=== PATIENT | male | born 1960 | race Caucasian/White ===

== ENCOUNTER 2018-02-10 18:35 | Inpatient (IN) | payer BC, OTHER ==
[2018-02-10] MEDS: morphine 4 MG/ML VIAL IV (19:45)
[2018-02-10] MEDS: SOD CHLORIDE 0.9% 1,000 ML IV (20:00)
[2018-02-10 20:07] LABS: ADD MAN DIFF? NO
[2018-02-10 20:08] LABS: ABNORMAL IP MESSAGE 1; BASOPHILS % 0.4 % (0.0-2.0); EOSINOPHILS % 0.2 % (0.0-7.0); HEMATOCRIT 45.9 % (42.0-52.0); HEMOGLOBIN 15.5 g/dl (14.0-18.0); LYMPHOCYTES # 0.5 10^3/ul (0.8-2.9); LYMPHOCYTES % 4.5 % (15.0-51.0); MEAN CORPUSCULAR HEMOGLOBIN 28.8 pg (29.0-33.0); MEAN CORPUSCULAR HGB CONC 33.8 g/dl (32.0-37.0); MEAN CORPUSCULAR VOLUME 85.3 fl (82.0-101.0); MEAN PLATELET VOLUME 12.6 fl (7.4-10.4); MONOCYTES % 9.8 % (0.0-11.0); NEUTROPHIL # 8.8 10^3/ul (1.6-7.5); NEUTROPHILS % 83.6 % (39.0-77.0); PLATELET COUNT 257 10^3/UL (140-415); POSITIVE DIFF @See below; RED BLOOD COUNT 5.38 10^6/ul (4.70-6.10); RED CELL DISTRIBUTION WIDTH 13.2 % (11.5-14.5)
[2018-02-10 20:08] LABS: WHITE BLOOD COUNT 10.6 10^3/ul (4.8-10.8)
[2018-02-10 20:27] LABS: ALANINE AMINOTRANSFERASE 18 IU/L (13-69); ALBUMIN 3.3 g/dl (3.3-4.9); ALKALINE PHOSPHATASE 84 IU/L (42-121); ANION GAP 14 (8-16); ASPARTATE AMINO TRANSFERASE 24 IU/L (15-46); BILIRUBIN,INDIRECT 0.5 mg/dl (0-1.1); BILIRUBIN,TOTAL 0.5 mg/dl (0.2-1.3); BLOOD UREA NITROGEN 22 mg/dl (7-20); CALCIUM 9.8 mg/dl (8.4-10.2); CARBON DIOXIDE 21 mmol/L (21-31); CHLORIDE 97 mmol/L (97-110); CREATININE 1.23 mg/dl (0.61-1.24); LIPASE 107 U/L (23-300); POTASSIUM 3.3 mmol/L (3.5-5.1); SODIUM 129 mmol/L (135-144); TOTAL PROTEIN 6.3 g/dl (6.1-8.1)
[2018-02-10] MEDS: ONDANSETRON 4 MG INJ IV (20:46)
[2018-02-10 20:55] LABS: GLUCOSE 479 mg/dl (70-220)
[2018-02-10 20:58] LABS: LACTIC ACID 2.8 mmol/L (0.5-2.0)
[2018-02-10] MEDS: LORAZEPAM 2 MG INJ IV (20:59)
[2018-02-10] MEDS: CEFEPIME 2GM/50 ML (PMX) 50 ML IVPB (21:00)
[2018-02-10] MEDS: SODIUM CHLORIDE 0.9% 1L BAG IV* (21:12)
[2018-02-10] MEDS: NYSTATIN 30 GM POWDER BTL TOP (21:26)
[2018-02-10] MEDS: VANCOMYCIN 1 GM (PMX) 250 ML IVPB (21:36)
[2018-02-10] MEDS: metroNIDAZOLE 500 MG/NS (PMX) 100 ML IVPB (22:10)
[2018-02-10 22:48] LABS: ADD UMIC YES; UR ASCORBIC ACID NEGATIVE (NEGATIVE); UR BACTERIA FEW /HPF (NONE SEEN); UR BILIRUBIN (Dip) NEGATIVE (NEGATIVE); UR BLOOD (Dip) 1+ mg/dL (NEGATIVE); UR CLARITY SLIGHTLY CLOUDY (CLEAR); UR COLOR YELLOW (YELLOW); UR GLUCOSE (Dip) 3+ mg/dL (NEGATIVE); UR KETONES (Dip) TRACE mg/dL (NEGATIVE); UR LEUKOCYTE ESTERASE (Dip) TRACE Leu/ul (NEGATIVE); UR NITRITE (Dip) NEGATIVE (NEGATIVE); UR RBC 2 /HPF (0-5); UR SPECIFIC GRAVITY (Dip) 1.015 (1.003-1.030); UR TOTAL PROTEIN (Dip) 1+ mg/dl (NEGATIVE); UR UROBILINOGEN (Dip) NEGATIVE (NEGATIVE); UR WBC 8 /HPF (0-5)
[2018-02-10 23:09] LABS: LACTIC ACID < 0.5 mmol/L (0.5-2.0)
[2018-02-11] MEDS ORDERED: DEXTROSE 50% 50 ML SYRINGE IV ×2 (00:30)
[2018-02-11] MEDS ORDERED: GLUCOSE GEL 15 GRAM TUBE PO ×2 (00:30)
[2018-02-11] MEDS ORDERED: GLUCOSE GEL 15 GRAM TUBE BUCCAL (00:30)
[2018-02-11] MEDS ORDERED: ACETAMINOPHEN 325 MG TAB PO (00:30)
[2018-02-11] MEDS ORDERED: GLUCAGON 1 MG INJ IM (00:30)
[2018-02-11 00:55] LABS: LACTIC ACID 1.3 mmol/L (0.5-2.0)
[2018-02-11] MEDS: POTASSIUM CHLORIDE 40 MEQ in SOD CHLORIDE 0.9% 1,000 ML IV ×4 (01:00→22:20)
[2018-02-11] MEDS: ONDANSETRON 4 MG INJ IV (01:07)
[2018-02-11] MEDS: MAGNESIUM SULFATE 1 GM/D5W 100 ML IVPB (01:07)
[2018-02-11] MEDS: METOCLOPRAMIDE 10 MG INJ IV (01:07)
[2018-02-11] MEDS: ACCU-CHEK XX (02:00)
[2018-02-11 04:01] LABS: GLUCOSE 385 mg/dl (70-220)
[2018-02-11] MEDS: glipiZIDE 10 MG TAB PO (04:31)
[2018-02-11] MEDS: INSULIN ASPART [NOVOLOG] 3 ML PEN SC ×5 (04:32→21:29)
[2018-02-11 06:54] LABS: ADD MAN DIFF? NO
[2018-02-11] MEDS ORDERED: glipiZIDE 10 MG TAB PO (07:00)
[2018-02-11 07:02] LABS: ABNORMAL IP MESSAGE 1; BASOPHILS % 0.4 % (0.0-2.0); HEMATOCRIT 40.9 % (42.0-52.0); HEMOGLOBIN 13.6 g/dl (14.0-18.0); LYMPHOCYTES # 0.5 10^3/ul (0.8-2.9); LYMPHOCYTES % 4.7 % (15.0-51.0); MEAN CORPUSCULAR HEMOGLOBIN 28.9 pg (29.0-33.0); MEAN CORPUSCULAR HGB CONC 33.3 g/dl (32.0-37.0); MONOCYTE # 1.2 10^3/ul (0.3-0.9); MONOCYTES % 10.4 % (0.0-11.0); NEUTROPHIL # 9.6 10^3/ul (1.6-7.5); NEUTROPHILS % 83.8 % (39.0-77.0); POSITIVE DIFF @See below; RED CELL DISTRIBUTION WIDTH 13.3 % (11.5-14.5)
[2018-02-11 07:02] LABS: WHITE BLOOD COUNT 11.4 10^3/ul (4.8-10.8)
[2018-02-11 07:05] LABS: PLATELET COUNT 191 10^3/UL (140-415)
[2018-02-11 07:14] LABS: HDL CHOLESTEROL 16 mg/dl (30-78); LDL CHOLESTEROL,CALCULATED 28 mg/dl; TRIGLYCERIDES 107 mg/dl (0-149)
[2018-02-11 07:14] LABS: CHOLESTEROL 65 mg/dl (100-200)
[2018-02-11 07:20] LABS: ALANINE AMINOTRANSFERASE 20 IU/L (13-69); ALBUMIN 2.7 g/dl (3.3-4.9); ALBUMIN/GLOBULIN RATIO 0.96; ALKALINE PHOSPHATASE 72 IU/L (42-121); ANION GAP 11 (8-16); ASPARTATE AMINO TRANSFERASE 20 IU/L (15-46); BILIRUBIN,INDIRECT 0.3 mg/dl (0-1.1); BILIRUBIN,TOTAL 0.3 mg/dl (0.2-1.3); BLOOD UREA NITROGEN 20 mg/dl (7-20); CALCIUM 8.7 mg/dl (8.4-10.2); CARBON DIOXIDE 22 mmol/L (21-31); CHLORIDE 108 mmol/L (97-110); CREATININE 0.89 mg/dl (0.61-1.24); GLUCOSE 275 mg/dl (70-220); MAGNESIUM 1.9 mg/dl (1.7-2.5); POTASSIUM 3.1 mmol/L (3.5-5.1); SODIUM 138 mmol/L (135-144); TOTAL PROTEIN 5.5 g/dl (6.1-8.1)
[2018-02-11] MEDS: metFORMIN 500 MG TAB PO ×2 (07:55→17:36)
[2018-02-11 08:01] LABS: HEMOGLOBIN A1C 13.8 % (0-5.9)
[2018-02-11] MEDS: POTASSIUM CHLORIDE (SR) 20 MEQ TAB PO (09:31)
[2018-02-11] MEDS: CIPROFLOXACIN 400MG/D5W 200 ML IVPB (09:31)
[2018-02-11] MEDS ORDERED: PIPER-TAZO 3.375 GM IV (PMX) 100 ML IVPB (19:00)
[2018-02-11] MEDS: DOXYCYCLINE 100 MG in SOD CHLORIDE 0.9% 250 ML IVPB (21:00)
[2018-02-11] MEDS: CEFEPIME 2GM/50 ML IVPB (21:21)
[2018-02-11] MEDS: INSULIN GLARGINE [LANTus] (100 UNITS/ML) SYG SC (21:28)
[2018-02-12] MEDS: ACCU-CHEK XX (02:30)
[2018-02-12] MEDS: POTASSIUM CHLORIDE 40 MEQ in SOD CHLORIDE 0.9% 1,000 ML IV ×2 (06:16→23:59)
[2018-02-12] MEDS: INSULIN ASPART [NOVOLOG] 3 ML PEN SC ×5 (07:47→20:43)
[2018-02-12] MEDS: metFORMIN 500 MG TAB PO ×2 (08:49→17:43)
[2018-02-12] MEDS: CEFEPIME 2GM/50 ML IVPB ×2 (08:50→20:36)
[2018-02-12] MEDS: DOXYCYCLINE 100 MG in SOD CHLORIDE 0.9% 250 ML IVPB ×2 (08:54→21:44)
[2018-02-12 09:10] LABS: ADD MAN DIFF? NO
[2018-02-12 09:14] LABS: BASOPHILS % 0.3 % (0.0-2.0); EOSINOPHILS # 0.1 10^3/ul (0.0-0.5); EOSINOPHILS % 0.4 % (0.0-7.0); HEMATOCRIT 42.5 % (42.0-52.0); LYMPHOCYTES # 1.3 10^3/ul (0.8-2.9); LYMPHOCYTES % 11.8 % (15.0-51.0); MEAN CORPUSCULAR HEMOGLOBIN 28.4 pg (29.0-33.0); MEAN CORPUSCULAR HGB CONC 32.9 g/dl (32.0-37.0); MEAN CORPUSCULAR VOLUME 86.2 fl (82.0-101.0); MEAN PLATELET VOLUME 12.1 fl (7.4-10.4); MONOCYTE # 1.1 10^3/ul (0.3-0.9); MONOCYTES % 9.8 % (0.0-11.0); NEUTROPHIL # 8.7 10^3/ul (1.6-7.5); NEUTROPHILS % 76.9 % (39.0-77.0); PLATELET COUNT 242 10^3/UL (140-415); RED BLOOD COUNT 4.93 10^6/ul (4.70-6.10); RED CELL DISTRIBUTION WIDTH 13.8 % (11.5-14.5)
[2018-02-12 09:14] LABS: WHITE BLOOD COUNT 11.3 10^3/ul (4.8-10.8)
[2018-02-12 09:38] LABS: ANION GAP 8 (8-16); BLOOD UREA NITROGEN 12 mg/dl (7-20); CALCIUM 8.3 mg/dl (8.4-10.2); CARBON DIOXIDE 22 mmol/L (21-31); CHLORIDE 109 mmol/L (97-110); GLUCOSE 179 mg/dl (70-220); POTASSIUM 3.8 mmol/L (3.5-5.1); SODIUM 135 mmol/L (135-144)
[2018-02-12] MEDS: INSULIN GLARGINE [LANTus] (100 UNITS/ML) SYG SC (20:42)
[2018-02-12] MEDS: ONDANSETRON 4 MG INJ IV (21:44)
[2018-02-13] MEDS: ACCU-CHEK XX (02:01)
[2018-02-13 06:30] LABS: ADD MAN DIFF? NO
[2018-02-13 06:32] LABS: WHITE BLOOD COUNT 9.6 10^3/ul (4.8-10.8)
[2018-02-13 06:32] LABS: BASOPHIL # 0.1 10^3/ul (0.0-0.1); BASOPHILS % 0.6 % (0.0-2.0); EOSINOPHILS # 0.1 10^3/ul (0.0-0.5); EOSINOPHILS % 0.5 % (0.0-7.0); HEMATOCRIT 41.3 % (42.0-52.0); HEMOGLOBIN 13.6 g/dl (14.0-18.0); LYMPHOCYTES # 1.4 10^3/ul (0.8-2.9); LYMPHOCYTES % 14.8 % (15.0-51.0); MEAN CORPUSCULAR HEMOGLOBIN 28.2 pg (29.0-33.0); MEAN CORPUSCULAR HGB CONC 32.9 g/dl (32.0-37.0); MEAN CORPUSCULAR VOLUME 85.7 fl (82.0-101.0); MEAN PLATELET VOLUME 11.8 fl (7.4-10.4); MONOCYTES % 10.6 % (0.0-11.0); NEUTROPHILS % 72.9 % (39.0-77.0); PLATELET COUNT 260 10^3/UL (140-415); RED BLOOD COUNT 4.82 10^6/ul (4.70-6.10); RED CELL DISTRIBUTION WIDTH 13.7 % (11.5-14.5)
[2018-02-13 06:50] LABS: INR 1.04; PROTIME 13.7 Sec (11.9-14.9); PT RATIO 1.1
[2018-02-13 06:51] LABS: PARTIAL THROMBOPLASTIN TIME 35.2 Sec (25.0-35.0)
[2018-02-13 07:07] LABS: ANION GAP 10 (8-16); BLOOD UREA NITROGEN 8 mg/dl (7-20); CALCIUM 8.2 mg/dl (8.4-10.2); CARBON DIOXIDE 22 mmol/L (21-31); CHLORIDE 110 mmol/L (97-110); CREATININE 0.57 mg/dl (0.61-1.24); GLUCOSE 132 mg/dl (70-220); POTASSIUM 3.4 mmol/L (3.5-5.1); SODIUM 139 mmol/L (135-144)
[2018-02-13] MEDS: INSULIN ASPART [NOVOLOG] 3 ML PEN SC ×7 (07:47→21:00)
[2018-02-13] MEDS: metFORMIN 500 MG TAB PO ×2 (07:47→17:55)
[2018-02-13] MEDS: CEFEPIME 2GM/50 ML IVPB (08:44)
[2018-02-13] MEDS: DOXYCYCLINE 100 MG in SOD CHLORIDE 0.9% 250 ML IVPB ×2 (08:44→22:36)
[2018-02-13] MEDS: POTASSIUM CHLORIDE 50 ML IVPB ×3 (10:45→12:31)
[2018-02-13] MEDS ORDERED: AMPICILLIN/SULB 3 GM/NS (PMX) 100 ML IVPB (12:00)
[2018-02-13] MEDS: CEFAZOLIN 2 GM/50 ML (PMX) 50 ML IVPB (14:19)
[2018-02-13] MEDS: POTASSIUM CHLORIDE 40 MEQ in SOD CHLORIDE 0.9% 1,000 ML IV (14:21)
[2018-02-13] MEDS ORDERED: FENTAnyl 50 MCG/ML VIAL (19:58)
[2018-02-13] MEDS ORDERED: LIDOCAINE 2% (SDV) 5 ML INJ (19:58)
[2018-02-13] MEDS ORDERED: MIDAZOLAM 1 MG/ML 2 ML INJ (19:58)
[2018-02-13] MEDS ORDERED: CEFAZOLIN 1 GM INJ (19:58)
[2018-02-13] MEDS ORDERED: PROPOFOL 40 ML (20:11)
[2018-02-13] MEDS ORDERED: ACETAMINOPHEN 1000MG/100ML IV 100 ML (20:26)
[2018-02-13] MEDS ORDERED: METOCLOPRAMIDE 10 MG INJ (20:26)
[2018-02-13] MEDS ORDERED: ONDANSETRON 4 MG INJ (20:26)
[2018-02-13] MEDS ORDERED: FAMOTIDINE 20 MG INJ (20:26)
[2018-02-13] MEDS ORDERED: HYDROmorphONE 2 MG/ML SYG (20:30)
[2018-02-13] MEDS: POLYMYXIN/BACITRACIN 1L IRRIG (20:57)
[2018-02-13] MEDS ORDERED: KETOROLAC 30 MG INJ (21:06)
[2018-02-13] MEDS ORDERED: FENTAnyl 50 MCG/ML VIAL IV ×3 (21:30)
[2018-02-13] MEDS ORDERED: PROCHLORPERAZINE 10 MG INJ IV (21:30)
[2018-02-13] MEDS ORDERED: hydrALAzine 20 MG INJ IV (21:30)
[2018-02-13] MEDS ORDERED: DIPHENHYDRAMINE 50 MG INJ IV (21:30)
[2018-02-13] MEDS ORDERED: LABETALOL HCL 20MG INJ IV (21:30)
[2018-02-13] MEDS ORDERED: MEPERIDINE 25 MG INJ IV (21:30)
[2018-02-13] MEDS ORDERED: HYDROmorphONE 1 MG/5 ML IV SYRINGE IV ×3 (21:30)
[2018-02-13] MEDS ORDERED: ONDANSETRON 4 MG INJ IV (21:30)
[2018-02-13] MEDS: INSULIN GLARGINE [LANTus] (100 UNITS/ML) SYG SC (22:35)
[2018-02-14] MEDS: CEFAZOLIN 2 GM/50 ML (PMX) 50 ML IVPB ×2 (00:12→06:26)
[2018-02-14] MEDS: ACCU-CHEK XX (02:37)
[2018-02-14] MEDS: POTASSIUM CHLORIDE 40 MEQ in SOD CHLORIDE 0.9% 1,000 ML IV ×3 (06:26→19:40)
[2018-02-14] MEDS: INSULIN ASPART [NOVOLOG] 3 ML PEN SC ×7 (07:55→21:00)
[2018-02-14] MEDS: DOXYCYCLINE 100 MG in SOD CHLORIDE 0.9% 250 ML IVPB (08:10)
[2018-02-14] MEDS: metFORMIN 500 MG TAB PO ×2 (08:11→17:03)
[2018-02-14 09:19] LABS: ADD MAN DIFF? NO
[2018-02-14 09:26] LABS: BASOPHIL # 0.1 10^3/ul (0.0-0.1); BASOPHILS % 0.6 % (0.0-2.0); EOSINOPHILS # 0.1 10^3/ul (0.0-0.5); EOSINOPHILS % 1.4 % (0.0-7.0); HEMATOCRIT 40.3 % (42.0-52.0); HEMOGLOBIN 13.1 g/dl (14.0-18.0); IMMATURE GRANS #M 0.08 10^3/ul; IMMATURE GRANS % (M) 0.9 %; LYMPHOCYTES # 1.5 10^3/ul (0.8-2.9); LYMPHOCYTES % 17.4 % (15.0-51.0); MEAN CORPUSCULAR HEMOGLOBIN 28.2 pg (29.0-33.0); MEAN CORPUSCULAR HGB CONC 32.5 g/dl (32.0-37.0); MEAN CORPUSCULAR VOLUME 86.7 fl (82.0-101.0); MEAN PLATELET VOLUME 12.1 fl (7.4-10.4); MONOCYTE # 0.8 10^3/ul (0.3-0.9); MONOCYTES % 8.7 % (0.0-11.0); NEUTROPHIL # 6.2 10^3/ul (1.6-7.5); PLATELET COUNT 240 10^3/UL (140-415); RED BLOOD COUNT 4.65 10^6/ul (4.70-6.10); RED CELL DISTRIBUTION WIDTH 13.8 % (11.5-14.5)
[2018-02-14 09:26] LABS: WHITE BLOOD COUNT 8.7 10^3/ul (4.8-10.8)
[2018-02-14 09:58] LABS: ANION GAP 10 (8-16); BLOOD UREA NITROGEN 9 mg/dl (7-20); CALCIUM 7.9 mg/dl (8.4-10.2); CARBON DIOXIDE 25 mmol/L (21-31); CHLORIDE 106 mmol/L (97-110); CREATININE 0.66 mg/dl (0.61-1.24); GLUCOSE 94 mg/dl (70-220); POTASSIUM 3.2 mmol/L (3.5-5.1); SODIUM 138 mmol/L (135-144)
[2018-02-14] MEDS ORDERED: VANCOMYCIN IV PER PHARMACY XX (10:00)
[2018-02-14] MEDS: MEROPENEM 1 GM/50ML(PMX) 50 ML IVPB ×3 (10:00→21:52)
[2018-02-14] MEDS ORDERED: metroNIDAZOLE 500 MG/NS (PMX) 100 ML IVPB (10:00)
[2018-02-14] MEDS: POTASSIUM CHLORIDE (SR) 20 MEQ TAB PO (11:08)
[2018-02-14] MEDS: CLINDAMYCIN 900 MG/D5W (PMX) 50 ML IVPB ×2 (11:48→21:02)
[2018-02-14] MEDS: VANCOMYCIN 2 GM in SOD CHLORIDE 0.9% 500 ML IVPB (13:41)
[2018-02-14] MEDS: INSULIN GLARGINE [LANTus] (100 UNITS/ML) SYG SC (21:10)
[2018-02-15] MEDS: VANCOMYCIN 2 GM in SOD CHLORIDE 0.9% 500 ML IVPB ×2 (01:56→15:17)
[2018-02-15] MEDS: ACCU-CHEK XX (02:00)
[2018-02-15] MEDS: POTASSIUM CHLORIDE 40 MEQ in SOD CHLORIDE 0.9% 1,000 ML IV (05:30)
[2018-02-15] MEDS: CLINDAMYCIN 900 MG/D5W (PMX) 50 ML IVPB ×3 (05:30→22:25)
[2018-02-15] MEDS: MEROPENEM 1 GM/50ML(PMX) 50 ML IVPB ×3 (06:10→21:46)
[2018-02-15] MEDS: INSULIN ASPART [NOVOLOG] 3 ML PEN SC ×7 (07:46→21:00)
[2018-02-15] MEDS: metFORMIN 500 MG TAB PO ×2 (07:46→18:07)
[2018-02-15 11:43] LABS: ADD MAN DIFF? NO
[2018-02-15 11:51] LABS: BASOPHILS % 0.5 % (0.0-2.0); EOSINOPHILS # 0.1 10^3/ul (0.0-0.5); EOSINOPHILS % 1.4 % (0.0-7.0); HEMATOCRIT 40.1 % (42.0-52.0); HEMOGLOBIN 13.4 g/dl (14.0-18.0); IMMATURE GRANS #M 0.12 10^3/ul; IMMATURE GRANS % (M) 1.4 %; LYMPHOCYTES # 1.4 10^3/ul (0.8-2.9); LYMPHOCYTES % 16.2 % (15.0-51.0); MEAN CORPUSCULAR HGB CONC 33.4 g/dl (32.0-37.0); MEAN CORPUSCULAR VOLUME 86.8 fl (82.0-101.0); MEAN PLATELET VOLUME 11.6 fl (7.4-10.4); MONOCYTE # 0.9 10^3/ul (0.3-0.9); NEUTROPHIL # 6.1 10^3/ul (1.6-7.5); NEUTROPHILS % 70.5 % (39.0-77.0); PLATELET COUNT 279 10^3/UL (140-415); RED BLOOD COUNT 4.62 10^6/ul (4.70-6.10); RED CELL DISTRIBUTION WIDTH 13.6 % (11.5-14.5)
[2018-02-15 11:51] LABS: WHITE BLOOD COUNT 8.6 10^3/ul (4.8-10.8)
[2018-02-15 12:19] LABS: ANION GAP 9 (8-16); BLOOD UREA NITROGEN 5 mg/dl (7-20); CALCIUM 7.9 mg/dl (8.4-10.2); CARBON DIOXIDE 24 mmol/L (21-31); CHLORIDE 109 mmol/L (97-110); CREATININE 0.64 mg/dl (0.61-1.24); GLUCOSE 100 mg/dl (70-220); POTASSIUM 3.2 mmol/L (3.5-5.1); SODIUM 139 mmol/L (135-144)
[2018-02-15] MEDS: POTASSIUM CHLORIDE (SR) 20 MEQ TAB PO (15:50)
[2018-02-15] MEDS: INSULIN GLARGINE [LANTus] (100 UNITS/ML) SYG SC (21:06)
[2018-02-16] MEDS: ACCU-CHEK XX (02:00)
[2018-02-16 03:58] LABS: ANION GAP 11 (8-16); BLOOD UREA NITROGEN 7 mg/dl (7-20); CALCIUM 8.4 mg/dl (8.4-10.2); CARBON DIOXIDE 26 mmol/L (21-31); CHLORIDE 108 mmol/L (97-110); CREATININE 0.63 mg/dl (0.61-1.24); GLUCOSE 145 mg/dl (70-220); POTASSIUM 3.5 mmol/L (3.5-5.1); SODIUM 141 mmol/L (135-144)
[2018-02-16 04:02] LABS: VANCOMYCIN,TROUGH 11.9 ug/ml (10.0-20.0)
[2018-02-16] MEDS: VANCOMYCIN 2 GM in SOD CHLORIDE 0.9% 500 ML IVPB ×2 (04:12→18:15)
[2018-02-16] MEDS ORDERED: CEFAZOLIN 1 GM INJ (07:00)
[2018-02-16] MEDS: metFORMIN 500 MG TAB PO ×2 (08:46→17:55)
[2018-02-16] MEDS: INSULIN ASPART [NOVOLOG] 3 ML PEN SC ×7 (08:51→21:00)
[2018-02-16] MEDS: MEROPENEM 1 GM/50ML(PMX) 50 ML IVPB ×2 (08:56→16:40)
[2018-02-16] MEDS: CLINDAMYCIN 900 MG/D5W (PMX) 50 ML IVPB ×2 (10:37→18:00)
[2018-02-16] MEDS: LACTOBACILLUS RHAMNOSUS CAP PO ×2 (13:28→21:00)
[2018-02-16] MEDS ORDERED: MIDAZOLAM 1 MG/ML 2 ML INJ (18:08)
[2018-02-16] MEDS ORDERED: FENTAnyl 50 MCG/ML VIAL (18:08)
[2018-02-16] MEDS ORDERED: PROPOFOL 20 ML (18:08)
[2018-02-16] MEDS ORDERED: ONDANSETRON 4 MG INJ (18:08)
[2018-02-16] MEDS ORDERED: METOCLOPRAMIDE 10 MG INJ (18:08)
[2018-02-16] MEDS: POLYMYXIN/BACITRACIN 1L IRRIG IRR (18:57)
[2018-02-16] MEDS ORDERED: ONDANSETRON 4 MG INJ IV (19:00)
[2018-02-16] MEDS ORDERED: HYDROmorphONE 1 MG/5 ML IV SYRINGE IV ×3 (19:00→19:22)
[2018-02-16] MEDS: HYDROmorphONE 1 MG/5 ML IV SYRINGE IV ×2 (19:42→19:48)
[2018-02-16] MEDS: FAMOTIDINE 20 MG TAB PO (20:59)
[2018-02-16] MEDS: INSULIN GLARGINE [LANTus] (100 UNITS/ML) SYG SC (21:01)
[2018-02-17] MEDS: MEROPENEM 1 GM/50ML(PMX) 50 ML IVPB ×3 (00:50→18:46)
[2018-02-17] MEDS: CLINDAMYCIN 900 MG/D5W (PMX) 50 ML IVPB ×3 (01:50→19:24)
[2018-02-17] MEDS: ACCU-CHEK XX (02:00)
[2018-02-17] MEDS: VANCOMYCIN 2 GM in SOD CHLORIDE 0.9% 500 ML IVPB ×2 (03:58→20:47)
[2018-02-17 05:20] LABS: ADD MAN DIFF? NO
[2018-02-17 05:30] LABS: BASOPHIL # 0.1 10^3/ul (0.0-0.1); BASOPHILS % 0.5 % (0.0-2.0); EOSINOPHILS # 0.3 10^3/ul (0.0-0.5); EOSINOPHILS % 2.6 % (0.0-7.0); HEMATOCRIT 39.9 % (42.0-52.0); HEMOGLOBIN 13.1 g/dl (14.0-18.0); IMMATURE GRANS % (M) 1.8 %; LYMPHOCYTES # 1.9 10^3/ul (0.8-2.9); LYMPHOCYTES % 17.7 % (15.0-51.0); MEAN CORPUSCULAR HEMOGLOBIN 28.5 pg (29.0-33.0); MEAN CORPUSCULAR HGB CONC 32.8 g/dl (32.0-37.0); MEAN CORPUSCULAR VOLUME 86.9 fl (82.0-101.0); MEAN PLATELET VOLUME 11.7 fl (7.4-10.4); MONOCYTE # 0.9 10^3/ul (0.3-0.9); MONOCYTES % 8.2 % (0.0-11.0); NEUTROPHIL # 7.6 10^3/ul (1.6-7.5); NEUTROPHILS % 69.2 % (39.0-77.0); PLATELET COUNT 257 10^3/UL (140-415); RED BLOOD COUNT 4.59 10^6/ul (4.70-6.10); RED CELL DISTRIBUTION WIDTH 13.8 % (11.5-14.5)
[2018-02-17 05:30] LABS: WHITE BLOOD COUNT 10.9 10^3/ul (4.8-10.8)
[2018-02-17 06:09] LABS: ANION GAP 10 (8-16); BLOOD UREA NITROGEN 10 mg/dl (7-20); CALCIUM 8.1 mg/dl (8.4-10.2); CARBON DIOXIDE 26 mmol/L (21-31); CHLORIDE 105 mmol/L (97-110); CREATININE 0.66 mg/dl (0.61-1.24); GLUCOSE 138 mg/dl (70-220); POTASSIUM 3.3 mmol/L (3.5-5.1); SODIUM 138 mmol/L (135-144)
[2018-02-17 06:16] LABS: MAGNESIUM 1.5 mg/dl (1.7-2.5)
[2018-02-17 06:16] LABS: PHOSPHORUS 3.4 mg/dl (2.5-4.9)
[2018-02-17] MEDS: metFORMIN 500 MG TAB PO ×2 (08:59→17:43)
[2018-02-17] MEDS: LACTOBACILLUS RHAMNOSUS CAP PO ×2 (08:59→20:32)
[2018-02-17] MEDS: FAMOTIDINE 20 MG TAB PO ×2 (08:59→20:32)
[2018-02-17] MEDS: INSULIN ASPART [NOVOLOG] 3 ML PEN SC ×7 (09:04→21:00)
[2018-02-17] MEDS: POTASSIUM CHLORIDE (SR) 20 MEQ TAB PO (13:12)
[2018-02-17] MEDS: MAGNESIUM SULFATE 2 GM/50 ML 50 ML IVPB (16:35)
[2018-02-17] MEDS: INSULIN GLARGINE [LANTus] (100 UNITS/ML) SYG SC (20:41)
[2018-02-18] MEDS: ACCU-CHEK XX (02:00)
[2018-02-18] MEDS: MEROPENEM 1 GM/50ML(PMX) 50 ML IVPB ×3 (04:13→08:54)
[2018-02-18] MEDS: CLINDAMYCIN 900 MG/D5W (PMX) 50 ML IVPB ×3 (04:34→18:22)
[2018-02-18 05:04] LABS: ADD MAN DIFF? NO
[2018-02-18 05:12] LABS: BASOPHIL # 0.1 10^3/ul (0.0-0.1); BASOPHILS % 0.7 % (0.0-2.0); EOSINOPHILS # 0.3 10^3/ul (0.0-0.5); EOSINOPHILS % 3.4 % (0.0-7.0); HEMATOCRIT 39.8 % (42.0-52.0); HEMOGLOBIN 13.1 g/dl (14.0-18.0); IMMATURE GRANS #M 0.16 10^3/ul; IMMATURE GRANS % (M) 1.6 %; LYMPHOCYTES # 1.9 10^3/ul (0.8-2.9); LYMPHOCYTES % 19.7 % (15.0-51.0); MEAN CORPUSCULAR HEMOGLOBIN 28.6 pg (29.0-33.0); MEAN CORPUSCULAR HGB CONC 32.9 g/dl (32.0-37.0); MEAN CORPUSCULAR VOLUME 86.9 fl (82.0-101.0); MEAN PLATELET VOLUME 11.5 fl (7.4-10.4); MONOCYTES % 10.6 % (0.0-11.0); NEUTROPHIL # 6.3 10^3/ul (1.6-7.5); PLATELET COUNT 293 10^3/UL (140-415); RED BLOOD COUNT 4.58 10^6/ul (4.70-6.10); RED CELL DISTRIBUTION WIDTH 13.8 % (11.5-14.5)
[2018-02-18 05:12] LABS: WHITE BLOOD COUNT 9.8 10^3/ul (4.8-10.8)
[2018-02-18 05:26] LABS: MAGNESIUM 1.9 mg/dl (1.7-2.5)
[2018-02-18 05:28] LABS: ANION GAP 9 (8-16); BLOOD UREA NITROGEN 11 mg/dl (7-20); CALCIUM 8.2 mg/dl (8.4-10.2); CARBON DIOXIDE 28 mmol/L (21-31); CHLORIDE 107 mmol/L (97-110); CREATININE 0.75 mg/dl (0.61-1.24); GLUCOSE 126 mg/dl (70-220); POTASSIUM 3.5 mmol/L (3.5-5.1); SODIUM 140 mmol/L (135-144)
[2018-02-18] MEDS: INSULIN ASPART [NOVOLOG] 3 ML PEN SC ×7 (08:52→21:00)
[2018-02-18] MEDS: metFORMIN 500 MG TAB PO ×2 (08:53→18:15)
[2018-02-18] MEDS: FAMOTIDINE 20 MG TAB PO ×2 (08:53→21:15)
[2018-02-18] MEDS: LACTOBACILLUS RHAMNOSUS CAP PO ×2 (08:53→21:16)
[2018-02-18] MEDS: VANCOMYCIN 2 GM in SOD CHLORIDE 0.9% 500 ML IVPB ×2 (10:44→21:15)
[2018-02-18] MEDS: INSULIN GLARGINE [LANTus] (100 UNITS/ML) SYG SC (21:23)
[2018-02-19] MEDS: ACCU-CHEK XX (02:00)
[2018-02-19] MEDS: CLINDAMYCIN 900 MG/D5W (PMX) 50 ML IVPB ×3 (02:54→17:45)
[2018-02-19 05:07] LABS: ADD MAN DIFF? NO; BASOPHIL # 0.1 10^3/ul (0.0-0.1); BASOPHILS % 0.7 % (0.0-2.0); EOSINOPHILS # 0.3 10^3/ul (0.0-0.5); EOSINOPHILS % 3.2 % (0.0-7.0); HEMATOCRIT 40.1 % (42.0-52.0); HEMOGLOBIN 13.2 g/dl (14.0-18.0); MEAN CORPUSCULAR HEMOGLOBIN 28.7 pg (29.0-33.0); MEAN CORPUSCULAR HGB CONC 32.9 g/dl (32.0-37.0); MEAN CORPUSCULAR VOLUME 87.2 fl (82.0-101.0); MEAN PLATELET VOLUME 11.4 fl (7.4-10.4); MONOCYTE # 0.9 10^3/ul (0.3-0.9); MONOCYTES % 10.1 % (0.0-11.0); NEUTROPHIL # 5.6 10^3/ul (1.6-7.5); NEUTROPHILS % 62.6 % (39.0-77.0); PLATELET COUNT 297 10^3/UL (140-415); RED CELL DISTRIBUTION WIDTH 13.7 % (11.5-14.5)
[2018-02-19 05:29] LABS: MAGNESIUM 1.7 mg/dl (1.7-2.5)
[2018-02-19 05:29] LABS: PHOSPHORUS 3.7 mg/dl (2.5-4.9)
[2018-02-19 05:31] LABS: ANION GAP 9 (8-16); BLOOD UREA NITROGEN 12 mg/dl (7-20); CALCIUM 8.1 mg/dl (8.4-10.2); CARBON DIOXIDE 27 mmol/L (21-31); CHLORIDE 106 mmol/L (97-110); CREATININE 0.59 mg/dl (0.61-1.24); GLUCOSE 171 mg/dl (70-220); POTASSIUM 3.5 mmol/L (3.5-5.1); SODIUM 138 mmol/L (135-144)
[2018-02-19 05:32] LABS: INR 0.97
[2018-02-19 05:33] LABS: PARTIAL THROMBOPLASTIN TIME 40.7 Sec (25.0-35.0)
[2018-02-19] MEDS ORDERED: PROPOFOL 200 MG INJ (07:00)
[2018-02-19] MEDS: metFORMIN 500 MG TAB PO ×2 (08:19→17:55)
[2018-02-19] MEDS: LACTOBACILLUS RHAMNOSUS CAP PO ×2 (08:19→20:50)
[2018-02-19] MEDS: FAMOTIDINE 20 MG TAB PO ×2 (08:19→20:50)
[2018-02-19] MEDS: INSULIN ASPART [NOVOLOG] 3 ML PEN SC ×7 (08:23→20:46)
[2018-02-19] MEDS: VANCOMYCIN 2 GM in SOD CHLORIDE 0.9% 500 ML IVPB (08:25)
[2018-02-19] MEDS ORDERED: OXYCODONE/ACETAMINOPHEN (5/325) TAB PO ×2 (19:00)
[2018-02-19] MEDS ORDERED: hydrALAzine 20 MG INJ IV (19:00)
[2018-02-19] MEDS ORDERED: ONDANSETRON 4 MG INJ IV (19:00)
[2018-02-19] MEDS ORDERED: FENTAnyl 50 MCG/ML VIAL IV ×3 (19:00)
[2018-02-19] MEDS ORDERED: DIPHENHYDRAMINE 50 MG INJ IV (19:00)
[2018-02-19] MEDS ORDERED: HYDROmorphONE 1 MG/5 ML IV SYRINGE IV ×3 (19:00)
[2018-02-19] MEDS ORDERED: METOCLOPRAMIDE 10 MG INJ IV (19:00)
[2018-02-19] MEDS ORDERED: EPHEDrine SULFATE 50 MG/5 ML SYG IV (19:00)
[2018-02-19] MEDS ORDERED: MEPERIDINE 25 MG INJ IV (19:00)
[2018-02-19] MEDS ORDERED: LABETALOL HCL 20MG INJ IV (19:00)
[2018-02-19] MEDS ORDERED: FENTAnyl 50 MCG/ML VIAL ×2 (19:03)
[2018-02-19] MEDS ORDERED: PROPOFOL 20 ML (19:03)
[2018-02-19] MEDS ORDERED: MIDAZOLAM 1 MG/ML 2 ML INJ (19:03)
[2018-02-19] MEDS ORDERED: ONDANSETRON 4 MG INJ (19:21)
[2018-02-19] MEDS ORDERED: METOCLOPRAMIDE 10 MG INJ (19:21)
[2018-02-19] MEDS: POLYMYXIN/BACITRACIN 1L IRRIG IRR (19:21)
[2018-02-19] MEDS ORDERED: KETOROLAC 30 MG INJ (19:21)
[2018-02-19] MEDS ORDERED: DEXAMETHASONE 4 MG/ML 1 ML INJ (19:23)
[2018-02-19] MEDS ORDERED: PHENYLephrine (100 MCG/ML) 5ML SYG (19:23)
[2018-02-19] MEDS: INSULIN GLARGINE [LANTus] (100 UNITS/ML) SYG SC (20:52)
[2018-02-19] MEDS ORDERED: VANCOMYCIN 2 GM in SOD CHLORIDE 0.9% 500 ML IVPB (21:00)
[2018-02-20] MEDS: CLINDAMYCIN 900 MG/D5W (PMX) 50 ML IVPB ×4 (02:00→18:47)
[2018-02-20] MEDS: ACCU-CHEK XX (02:00)
[2018-02-20 05:49] LABS: ADD MAN DIFF? NO
[2018-02-20 05:52] LABS: WHITE BLOOD COUNT 9.6 10^3/ul (4.8-10.8)
[2018-02-20 05:52] LABS: BASOPHILS % 0.4 % (0.0-2.0); EOSINOPHILS % 0.2 % (0.0-7.0); HEMATOCRIT 39.2 % (42.0-52.0); LYMPHOCYTES # 1.2 10^3/ul (0.8-2.9); LYMPHOCYTES % 12.4 % (15.0-51.0); MEAN CORPUSCULAR HGB CONC 33.2 g/dl (32.0-37.0); MEAN CORPUSCULAR VOLUME 87.3 fl (82.0-101.0); MONOCYTE # 0.7 10^3/ul (0.3-0.9); NEUTROPHIL # 7.6 10^3/ul (1.6-7.5); NEUTROPHILS % 79.2 % (39.0-77.0); PLATELET COUNT 283 10^3/UL (140-415); RED BLOOD COUNT 4.49 10^6/ul (4.70-6.10); RED CELL DISTRIBUTION WIDTH 13.5 % (11.5-14.5)
[2018-02-20 06:31] LABS: ANION GAP 13 (8-16); BLOOD UREA NITROGEN 16 mg/dl (7-20); CALCIUM 8.6 mg/dl (8.4-10.2); CARBON DIOXIDE 26 mmol/L (21-31); CHLORIDE 104 mmol/L (97-110); CREATININE 0.83 mg/dl (0.61-1.24); GLUCOSE 215 mg/dl (70-220); POTASSIUM 3.8 mmol/L (3.5-5.1); SODIUM 139 mmol/L (135-144)
[2018-02-20 06:34] LABS: MAGNESIUM 1.7 mg/dl (1.7-2.5)
[2018-02-20] MEDS: metFORMIN 500 MG TAB PO ×2 (09:03→18:42)
[2018-02-20] MEDS: INSULIN ASPART [NOVOLOG] 3 ML PEN SC ×7 (09:06→20:31)
[2018-02-20] MEDS: LACTOBACILLUS RHAMNOSUS CAP PO ×2 (09:12→20:25)
[2018-02-20] MEDS: FAMOTIDINE 20 MG TAB PO ×2 (09:12→20:25)
[2018-02-20] MEDS: HYDROCODONE/APAP (5/325) TAB PO (16:27)
[2018-02-20] MEDS: SODIUM HYPOCHLORITE (1/40) 1 APPLIC BTL IRR (18:44)
[2018-02-20] MEDS: INSULIN GLARGINE [LANTus] (100 UNITS/ML) SYG SC (20:29)
[2018-02-21] MEDS: CLINDAMYCIN 900 MG/D5W (PMX) 50 ML IVPB ×3 (01:46→17:10)
[2018-02-21] MEDS: ACCU-CHEK XX (01:53)
[2018-02-21 05:33] LABS: ADD MAN DIFF? NO
[2018-02-21 05:34] LABS: BASOPHIL # 0.1 10^3/ul (0.0-0.1); BASOPHILS % 0.6 % (0.0-2.0); EOSINOPHILS # 0.2 10^3/ul (0.0-0.5); EOSINOPHILS % 2.8 % (0.0-7.0); HEMATOCRIT 39.3 % (42.0-52.0); LYMPHOCYTES % 25.5 % (15.0-51.0); MEAN CORPUSCULAR HEMOGLOBIN 28.9 pg (29.0-33.0); MEAN CORPUSCULAR HGB CONC 33.1 g/dl (32.0-37.0); MEAN CORPUSCULAR VOLUME 87.3 fl (82.0-101.0); MEAN PLATELET VOLUME 11.7 fl (7.4-10.4); MONOCYTE # 0.7 10^3/ul (0.3-0.9); MONOCYTES % 9.1 % (0.0-11.0); NEUTROPHIL # 4.8 10^3/ul (1.6-7.5); NEUTROPHILS % 61.5 % (39.0-77.0); PLATELET COUNT 286 10^3/UL (140-415); RED CELL DISTRIBUTION WIDTH 13.5 % (11.5-14.5)
[2018-02-21 05:34] LABS: WHITE BLOOD COUNT 7.8 10^3/ul (4.8-10.8)
[2018-02-21] MEDS: HYDROCODONE/APAP (5/325) TAB PO ×2 (05:34→22:58)
[2018-02-21 05:57] LABS: ANION GAP 13 (8-16); BLOOD UREA NITROGEN 17 mg/dl (7-20); CALCIUM 8.4 mg/dl (8.4-10.2); CARBON DIOXIDE 27 mmol/L (21-31); CHLORIDE 107 mmol/L (97-110); CREATININE 0.73 mg/dl (0.61-1.24); GLUCOSE 107 mg/dl (70-220); POTASSIUM 3.5 mmol/L (3.5-5.1); SODIUM 143 mmol/L (135-144)
[2018-02-21 06:02] LABS: MAGNESIUM 1.7 mg/dl (1.7-2.5)
[2018-02-21 06:02] LABS: PHOSPHORUS 4.5 mg/dl (2.5-4.9)
[2018-02-21] MEDS: INSULIN ASPART [NOVOLOG] 3 ML PEN SC ×8 (07:50→20:37)
[2018-02-21] MEDS: LACTOBACILLUS RHAMNOSUS CAP PO ×4 (08:57→20:36)
[2018-02-21] MEDS: metFORMIN 500 MG TAB PO ×2 (08:57→17:10)
[2018-02-21] MEDS: FAMOTIDINE 20 MG TAB PO ×2 (08:57→20:34)
[2018-02-21] MEDS: SODIUM HYPOCHLORITE (1/40) 1 APPLIC BTL IRR (09:10)
[2018-02-21] MEDS: CASPOFUNGIN 70 MG in SOD CHLORIDE 0.9% 250 ML IVPB (18:47)
[2018-02-21] MEDS: INSULIN GLARGINE [LANTus] (100 UNITS/ML) SYG SC (20:33)
[2018-02-22] MEDS: CLINDAMYCIN 900 MG/D5W (PMX) 50 ML IVPB ×2 (01:27→08:55)
[2018-02-22] MEDS: ACCU-CHEK XX (01:45)
[2018-02-22] MEDS: INSULIN ASPART [NOVOLOG] 3 ML PEN SC ×6 (07:50→17:54)
[2018-02-22] MEDS: metFORMIN 500 MG TAB PO ×2 (08:56→17:46)
[2018-02-22] MEDS: LACTOBACILLUS RHAMNOSUS CAP PO ×2 (08:56)
[2018-02-22] MEDS: FAMOTIDINE 20 MG TAB PO (08:56)
[2018-02-22] MEDS: SODIUM HYPOCHLORITE (1/40) 1 APPLIC BTL IRR (08:59)
[2018-02-22] MEDS: HYDROCODONE/APAP (5/325) TAB PO (12:43)
[2018-02-22] MEDS: FLUCONAZOLE 100 MG TAB PO (16:00)
[2018-02-22] MEDS: CLINDAMYCIN 300 MG CAP PO ×2 (16:00→17:46)
[2018-02-22] MEDS: NYSTATIN 30 GM POWDER BTL TOP (17:47)
[2018-02-22] MEDS ORDERED: CASPOFUNGIN 50 MG in SOD CHLORIDE 0.9% 250 ML IVPB (18:00)
[2018-02-23] MEDS ORDERED: LISINOPRIL 5 MG TAB PO (09:00)
[2018-02-23] MEDS ORDERED: FLUCONAZOLE 100 MG TAB PO (09:00)
== END 2018-02-22 19:00 | DRG 853 ==
LOC: TEL 02-13 22:16 → E/R 18:35 → MS1 23:19 → TEL 02-11 03:45 → MS1 02-15 17:07
PROC: 0J9C0ZZ Drainage of Pelvic Region Subcutaneous Tissue and Fascia, Open Approach (ICD-10-PCS; principal; 2018-02-13 19:30)
PROC: 0Y950ZZ Drainage of Right Inguinal Region, Open Approach (ICD-10-PCS; 2018-02-13 19:30)
PROC: 0JBB0ZZ Excision of Perineum Subcutaneous Tissue and Fascia, Open Approach (ICD-10-PCS; 2018-02-13 19:30)
PROC: 0JBC0ZZ Excision of Pelvic Region Subcutaneous Tissue and Fascia, Open Approach (ICD-10-PCS; 2018-02-13 19:30)
PROC: 0V950ZZ Drainage of Scrotum, Open Approach (ICD-10-PCS; 2018-02-13 19:30)
PROC: 0JBB0ZZ Excision of Perineum Subcutaneous Tissue and Fascia, Open Approach (ICD-10-PCS; 2018-02-13 19:56)
PROC: 0JBC0ZZ Excision of Pelvic Region Subcutaneous Tissue and Fascia, Open Approach (ICD-10-PCS; 2018-02-13 19:56)
PROC: 0JBB0ZZ Excision of Perineum Subcutaneous Tissue and Fascia, Open Approach (ICD-10-PCS; 2018-02-13 19:56)
PROC: 0JBC0ZZ Excision of Pelvic Region Subcutaneous Tissue and Fascia, Open Approach (ICD-10-PCS; 2018-02-13 19:56)
PROC: 0VB5XZZ Excision of Scrotum, External Approach (ICD-10-PCS; 2018-02-13 19:56)
PROC: 0VB5XZZ Excision of Scrotum, External Approach (ICD-10-PCS; 2018-02-13 19:56)
DX: A41.9 Sepsis, unspecified organism (principal); M72.6 Necrotizing fasciitis; E11.10 Type 2 diabetes mellitus with ketoacidosis without coma; Z68.41 Body mass index [BMI] 40.0-44.9, adult; R65.20 Severe sepsis without septic shock; N49.3 Fournier gangrene; N49.2 Inflammatory disorders of scrotum; E66.01 Morbid (severe) obesity due to excess calories; E11.65 Type 2 diabetes mellitus with hyperglycemia; B95.1 Streptococcus, group B, as the cause of diseases classified elsewhere; D64.9 Anemia, unspecified; I10 Essential (primary) hypertension; F17.200 Nicotine dependence, unspecified, uncomplicated; Z91.14 Patient's other noncompliance with medication regimen; Z79.84 Long term (current) use of oral hypoglycemic drugs
CPT/HCPCS: 36415; 70450; 71045; 74176; 76870; 80048; 80053; 80061; 80202; 81001; 82947; 82962; 83036; 83605; 83690; 83735; 84100; 84484; 85025; 85610; 85730; 87040; 87070; 87075; 87086; 87102; 87116; 88304; 88305; 93005; 96361; 96365; 96366; 96367; 96368; 96375; 97110; 97116; 97162; 97530; 99217; 99291-25; G0378

== ENCOUNTER 2018-04-01 10:32 | Observation (INO) | payer BC ==
[~2018-04-01 10:32] MED LIST: CIPRO 400 MG/200 ML D5W IVPB; LIDOCAINE 2% (SDV) 5 ML INJ
[2018-04-01] MEDS ORDERED: PROPOFOL 20 ML (12:28)
[2018-04-01] MEDS ORDERED: ROCURONIUM 50 MG INJ ×2 (12:43→14:21)
[2018-04-01] MEDS: POLYMYXIN/BACITRACIN 1L IRRIG (13:08)
[2018-04-01] MEDS ORDERED: DEXAMETHASONE 4 MG/ML 1 ML INJ (14:21)
[2018-04-01] MEDS ORDERED: SUGAMMADEX SODIUM 200 MG/2 ML VIAL IV (14:21)
[2018-04-01] MEDS ORDERED: ONDANSETRON 4 MG INJ (14:21)
[2018-04-01] MEDS: NEOMYC/POLYMYX/BACIT 30 GM OINT (14:26)
[2018-04-01] MEDS ORDERED: OXYCODONE/ACETAMINOPHEN (5/325) TAB PO ×2 (15:00)
[2018-04-01] MEDS: MAGNESIUM OXIDE 400 MG TAB PO (15:00)
[2018-04-01] MEDS ORDERED: MIDAZOLAM 1 MG/ML 2 ML INJ IV (15:00)
[2018-04-01] MEDS: FAMOTIDINE 20 MG TAB PO (15:00)
[2018-04-01] MEDS: ASCORBIC ACID 500 MG TAB PO ×2 (15:00→20:21)
[2018-04-01] MEDS ORDERED: METOCLOPRAMIDE 10 MG INJ IV (15:00)
[2018-04-01] MEDS ORDERED: HYDROmorphONE 1 MG/5 ML IV SYRINGE IV ×2 (15:00)
[2018-04-01] MEDS ORDERED: HYDROCODONE/APAP (5/325) TAB PO (15:00)
[2018-04-01] MEDS: FERROUS SULFATE (EC) 325 MG TAB PO (15:00)
[2018-04-01] MEDS ORDERED: ONDANSETRON 4 MG INJ IV (15:00)
[2018-04-01] MEDS: MULTIVITAMINS THERAPEUTIC TAB PO (15:00)
[2018-04-01] MEDS ORDERED: MEPERIDINE 25 MG INJ IV (15:00)
[2018-04-01] MEDS: ZINC SULFATE 220 MG CAP PO (15:00)
[2018-04-01] MEDS ORDERED: LABETALOL HCL 20MG INJ IV (15:00)
[2018-04-01] MEDS ORDERED: FENTAnyl 50 MCG/ML VIAL IV ×3 (15:00)
[2018-04-01] MEDS ORDERED: hydrALAzine 20 MG INJ IV (15:00)
[2018-04-01] MEDS: NYSTATIN 15 GM CR TOP ×2 (15:00→20:21)
[2018-04-01] MEDS: LISINOPRIL 10 MG TAB PO (15:00)
[2018-04-01] MEDS: LINAGLIPTIN 5 MG TABLET PO (15:00)
[2018-04-01] MEDS: LACTULOSE 30ML CUP PO ×2 (15:00→20:22)
[2018-04-01] MEDS: LACTOBACILLUS RHAMNOSUS CAP PO ×2 (15:00→20:20)
[2018-04-01] MEDS ORDERED: EPHEDrine SULFATE 50 MG/5 ML SYG IV (15:00)
[2018-04-01] MEDS ORDERED: DIPHENHYDRAMINE 50 MG INJ IV (15:00)
[2018-04-01] MEDS: ALBUTEROL 0.083% (NEB) 2.5 MG/3 ML AMP HHN (15:08)
[2018-04-01] MEDS: HYDROmorphONE 1 MG/5 ML IV SYRINGE IV ×2 (15:13→15:26)
[2018-04-01] MEDS: INSULIN ASPART [NOVOLOG] 3 ML PEN SC ×4 (15:17→20:42)
[2018-04-01] MEDS ORDERED: BISACODYL 10 MG SUPP PR (17:00)
[2018-04-01] MEDS ORDERED: NACL 0.9% 3 ML SYG IV (17:00)
[2018-04-01] MEDS ORDERED: MAGNESIUM HYDROXIDE 30ML CUP PO (17:00)
[2018-04-01] MEDS ORDERED: DOCUSATE SODIUM 100 MG CAP PO (17:00)
[2018-04-01] MEDS ORDERED: GLUCOSE GEL 15 GRAM TUBE BUCCAL (17:30)
[2018-04-01] MEDS ORDERED: GLUCOSE GEL 15 GRAM TUBE PO ×2 (17:30)
[2018-04-01] MEDS ORDERED: DEXTROSE 50% 50 ML SYRINGE IV ×2 (17:30)
[2018-04-01] MEDS ORDERED: GLUCAGON 1 MG INJ IM (17:30)
[2018-04-01] MEDS: CIPROFLOXACIN 500 MG TAB PO (18:32)
[2018-04-01] MEDS: INSULIN GLARGINE [LANTus] (100 UNITS/ML) SYG SC (20:42)
[2018-04-01] MEDS ORDERED: INSULIN GLARGINE [LANTus] (100 UNITS/ML) SYG SC (21:00)
[2018-04-02] MEDS: ACCU-CHEK XX (02:00)
[2018-04-02] MEDS: CIPROFLOXACIN 500 MG TAB PO (05:30)
[2018-04-02 07:14] LABS: ADD MAN DIFF? NO
[2018-04-02 07:18] LABS: WHITE BLOOD COUNT 12.1 10^3/ul (4.8-10.8)
[2018-04-02 07:18] LABS: BASOPHILS % 0.2 % (0.0-2.0); EOSINOPHILS % 0.1 % (0.0-7.0); HEMATOCRIT 38.9 % (42.0-52.0); HEMOGLOBIN 12.8 g/dl (14.0-18.0); LYMPHOCYTES # 1.5 10^3/ul (0.8-2.9); LYMPHOCYTES % 12.3 % (15.0-51.0); MEAN CORPUSCULAR HEMOGLOBIN 28.6 pg (29.0-33.0); MEAN CORPUSCULAR HGB CONC 32.9 g/dl (32.0-37.0); MEAN PLATELET VOLUME 12.3 fl (7.4-10.4); MONOCYTE # 0.8 10^3/ul (0.3-0.9); MONOCYTES % 6.8 % (0.0-11.0); NEUTROPHIL # 9.7 10^3/ul (1.6-7.5); NEUTROPHILS % 80.2 % (39.0-77.0); PLATELET COUNT 227 10^3/UL (140-415); RED BLOOD COUNT 4.47 10^6/ul (4.70-6.10); RED CELL DISTRIBUTION WIDTH 14.3 % (11.5-14.5)
[2018-04-02 07:41] LABS: PHOSPHORUS 4.7 mg/dl (2.5-4.9)
[2018-04-02 07:41] LABS: MAGNESIUM 1.8 mg/dl (1.7-2.5)
[2018-04-02 07:43] LABS: ANION GAP 11 (8-16); BLOOD UREA NITROGEN 23 mg/dl (7-20); CALCIUM 9.1 mg/dl (8.4-10.2); CARBON DIOXIDE 28 mmol/L (21-31); CHLORIDE 103 mmol/L (97-110); CREATININE 0.91 mg/dl (0.61-1.24); GLUCOSE 140 mg/dl (70-220); SODIUM 138 mmol/L (135-144)
[2018-04-02] MEDS: LACTULOSE 30ML CUP PO (08:08)
[2018-04-02] MEDS: MAGNESIUM OXIDE 400 MG TAB PO (08:09)
[2018-04-02] MEDS: LISINOPRIL 10 MG TAB PO (08:09)
[2018-04-02] MEDS: FAMOTIDINE 20 MG TAB PO (08:09)
[2018-04-02] MEDS: FERROUS SULFATE (EC) 325 MG TAB PO (08:09)
[2018-04-02] MEDS: LINAGLIPTIN 5 MG TABLET PO (08:09)
[2018-04-02] MEDS: ASCORBIC ACID 500 MG TAB PO (08:09)
[2018-04-02] MEDS: LACTOBACILLUS RHAMNOSUS CAP PO (08:09)
[2018-04-02] MEDS: ZINC SULFATE 220 MG CAP PO (08:10)
[2018-04-02] MEDS: MULTIVITAMINS THERAPEUTIC TAB PO (08:10)
[2018-04-02 08:17] LABS: HEMOGLOBIN A1C 7.6 % (0-5.9)
[2018-04-02] MEDS: INSULIN ASPART [NOVOLOG] 3 ML PEN SC ×2 (08:24→08:25)
[2018-04-02] MEDS: NYSTATIN 15 GM CR TOP (09:00)
== END 2018-04-02 12:10 ==
LOC: SDS 10:32 → REC 15:36 → 2NE 16:00
PROVIDERS: Urology
DX: N49.3 Fournier gangrene (principal); I10 Essential (primary) hypertension; E11.9 Type 2 diabetes mellitus without complications; E66.01 Morbid (severe) obesity due to excess calories; Z68.41 Body mass index [BMI] 40.0-44.9, adult
CPT/HCPCS: 55180; 80048; 82962; 83036; 83735; 84100; 85025; 88305; 94640